=== PATIENT | female | born 1995 | race African-American/Black ===

== ENCOUNTER 2019-03-12 12:32 | Emergency (ER) | payer BC ==
[~2019-03-12] VITALS: Ht 165.1 cm; Wt 60.1 kg
[2019-03-12 12:36] VITALS: Ht 165.1 cm; Wt 60.1 kg
[2019-03-12] MEDS ORDERED: morphine 4 MG/ML VIAL IM STA (13:17)
[2019-03-12] MEDS ORDERED: DIPHTH/TET/ACEL PERTUSS (ADULT) 0.5 ML VIAL IM* ONE (13:30)
[2019-03-12] MEDS ORDERED: LIDOCAINE 5% 35 GM OINT TOP ONE (13:30)
[2019-03-12] MEDS ORDERED: MUPIROCIN 2% 22 GM OINT TOP ONE (13:30)
[2019-03-12] MEDS ORDERED: MUPI22OI2 TOP (13:48)
[2019-03-12] MEDS ORDERED: IBUP-1542 PO (13:48)
[2019-03-12] MEDS ORDERED: TRAM50TA2 PO (13:48)
--- NOTE | 2019-03-12 14:21 | ERD ---
ER Documentation Chief Complaint Chief Complaint burn on left thigh x last nigh burnt at work HPI History of Present Illness: 23-year-old female who denies a past medical history coming in today with complaint of burn injury to her left thigh that occurred yesterday at approximately 1730 while at work. Patient reports a hot cast iron accidentally hit her left thigh and caused a burn. Reports that significant other helped patient to put a unspecified barrier as well as nonadherent dressing before coming to the ER. At home pharmacological/nonpharmacological treatment for symptoms: Denies Denies social concerns; Denies recent foreign travel ROS All systems reviewed and are negative except as per history of present illness. Medications Home Meds Active Scripts Ibuprofen* (Motrin*) 600 Mg Tab, 600 MG PO Q6H PRN for PAIN AND OR ELEVATED TEMP, #30 TAB Prov:MARK MOMIN NP 03/12/19 Tramadol HCl (Tramadol HCl) 50 Mg Tablet, 50 MG PO Q6 PRN for PAIN, #12 TAB Prov:MARK MOMIN NP 03/12/19 Mupirocin* (Bactroban*) 2% -22 Gram Oint...g., 1 APPLIC TOP TID for BURN INJURY for 14 Days, #3 EA Prov:MARK MOMIN NP 03/12/19 Allergies Allergies: Coded Allergies: No Known Allergy (Unverified , 03/12/19) PMhx/Soc Medical and Surgical Hx: pt denies Medical Hx, pt denies Surgical Hx Hx Alcohol Use: Yes Hx Substance Use: No Hx Tobacco Use: No Smoking Status: Never smoker FmHx Family History: No diabetes, No coronary disease Physical Exam Vitals Vital Signs Date Temp Pulse Resp B/P (MAP) Pulse Ox O2 O2 Flow FiO2 Time Delivery Rate 03/12/19 99.1 87 18 125/68 96 12:36 (87) Physical Exam Const: No acute distress, afebrile Head: Atraumatic Eyes: Normal Conjunctiva ENT: Normal External Ears, Nose and Mouth. Neck: Full range of motion. No meningismus. Resp: Clear to auscultation bilaterally Cardio: Regular rate and rhythm, no murmurs Abd: Soft, non tender, non distended. No guarding, no masses, no rigidity Skin: No petechiae or rashes; 4 x 4 inch burn noted to lateral aspect of left thigh consistent with second-degree burn, clear drainage, no purulent discharge, no odorous discharge Back: No midline or flank tenderness Ext: No cyanosis, or edema Neur: Awake and alert x3, speaking in clear sentences, no focal deficits or facial asymmetry Psych: Normal Mood and Affect Results 24 hrs Current Medications Medications Dose Sig/Torrie Start Time Status Last (Trade) Ordered Route PRN Stop Time Admin Dose Reason Admin Diphtheria/ 0.5 ml ONCE ONCE 03/12/19 DC 03/12/19 Tetanus/Acell IM* 13:30 13:27 Pertussis 03/12/19 13:31 (Adacel) Mupirocin 1 applic ONCE ONCE 03/12/19 DC (Bactroban) TOP 13:30 03/12/19 13:31 Lidocaine 1 applic ONCE ONCE 03/12/19 DC (Lidocaine TOP 13:30 5% Oint) 03/12/19 13:31 Morphine 4 mg ONCE STAT 03/12/19 DC 03/12/19 Sulfate IM 13:17 13:27 (morphine) 03/12/19 13:18 Procedures/MDM ED course includes a thorough examination and history. ED course includes wound care. Medications: Bacitracin, morphine, topical lidocaine Imaging: Labs: Low suspicion for life-threatening medical emergency. Low suspicion for dermatological emergency that requires hospitalization or immediate surgical intervention. Otherwise healthy patient presenting with constellation of symptoms likely representing second-degree burn as characterized by history, physical exam findings. Patient reassessment 1420: Wound care complete. Decrease in pain reported. Pat ient hemodynamically stable. No respiratory distress, otherwise relatively well appearing and nontoxic. Disposition given. Patient educated on diagnoses, prescriptions, follow-up care, return precautions. Strict return precautions given for worsening condition; questions answered discharge. Disposition for discharge with followup in 2 days with PCP/clinic. Departure Diagnosis: Primary Impression: Burn injury Condition: Stable Patient Instructions: Burn, Second Degree Referrals: COMMUNITY CLINICS YOU HAVE RECEIVED A MEDICAL SCREENING EXAM AND THE RESULTS INDICATE THAT YOU DO NOT HAVE A CONDITION THAT REQUIRES URGENT TREATMENT IN THE EMERGENCY DEPARTMENT. FURTHER EVALUATION AND TREATMENT OF YOUR CONDITION CAN WAIT UNTIL YOU ARE SEEN IN YOUR DOCTORS OFFICE WITHIN THE NEXT 1-2 DAYS. IT IS YOUR RESPONSIBILITY TO MAKE AN APPOINTMENT FOR FOLOW-UP CARE. IF YOU HAVE A PRIMARY DOCTOR --you should call your primary doctor and schedule an appointment IF YOU DO NOT HAVE A PRIMARY DOCTOR YOU CAN CALL OUR PHYSICIAN REFERRAL HOTLINE AT IF YOU CAN NOT AFFORD TO SEE A PHYSICIAN YOU CAN CHOSE FROM THE FOLLOWING [facility] [address] [facility] [address] [facility] [address] [facility] [address] [facility] [address] [facility]. [facility] [address] [facility]. [facility] YOU HAVE RECEIVED A MEDICAL SCREENING EXAM AND THE RESULTS INDICATE THAT YOU DO NOT HAVE A CONDITION THAT REQUIRES URGENT TREATMENT IN THE EMERGENCY DEPARTMENT. FURTHER EVALUATION AND TREATMENT OF YOUR CONDITION CAN WAIT UNTIL YOU ARE SEEN IN YOUR DOCTORS OFFICE WITHIN THE NEXT 1-2 DAYS. IT IS YOUR RESPONSIBILITY TO MAKE AN APPOINTMENT FOR FOLOW-UP CARE. IF YOU HAVE A PRIMARY DOCTOR --you should call your primary doctor and schedule and appointment IF YOU DO NOT HAVE A PRIMARY DOCTOR YOU CAN CALL OUR PHYSICIAN REFERRAL HOTLINE AT . IF YOU CAN NOT AFFORD TO SEE A PHYSICIAN YOU CAN CHOSE FROM THE FOLLOWING [facility]: [facility] [address] [place] [address] [facility] [address] [place] [address] [facility] [address] [place] [address] [facility] Additional Instructions: Thank you very much for allowing us to participate in your care. Your health and safety is our top priority at [facility]. It is important to read all discharge instructions and education provided in your discharge packet. Call your primary care doctor TOMORROW for an appointment during the next 2-4 days and bring all the information and medications prescribed. Have prescriptions filled and follow precisely the directions on the label. -Bactroban is an antibiotic; take this medication every day as listed on your prescription. You must complete the entire course of treatment that is listed o n your prescription this is very important because it takes a certain number of days to kill the bacteria that is causing the infection. -Tramadol is an opiate pain medication; take this medication as needed for moderate to severe pain. No operating of heavy machinery while taking this medication. It may cause drowsiness. --Ibuprofen is a medication that will help with pain/inflammation. At the dosage of 600 to 800 mg, this will help with inflammation/swelling. Take this medication as prescribed. If the symptoms get worse and your provider is unavailable, return to the Emergency Department immediately. MARK MOMIN NP Mar 12, 2019 14:21
[2019-03-12 14:53] VITALS: BP 116/64; PULSE 76; RESP 18
== END 2019-03-12 14:54 | disposition home or self-care (01) ==
LOC: FTE 12:32
DX: T24.212A Burn of second degree of left thigh, initial encounter (principal); X15.8XXA Contact with other hot household appliances, initial encounter; Y92.89 Other specified places as the place of occurrence of the external cause; Z23 Encounter for immunization
CPT/HCPCS: 90471; 90715; 96372; 99284; J2270